=== PATIENT | male | born 1955 | race Caucasian/White ===

== ENCOUNTER 2020-02-20 15:59 | Emergency (ER) | payer BC ==
[2020-02-20 16:11] VITALS: BP 160/84; PULSE 88
--- NOTE | 2020-02-20 16:26 | EDM.PDOC ---
ED HPI GENERAL MEDICAL PROBLEM - General Chief Complaint: Neuro Symptoms/Deficits Stated Complaint: FACIAL NUMBNESS AND DROOPING Time Seen by Provider: 02/20/20 16:05 Source of Information: Reports: Patient, Family (spouse), RN Notes Reviewed - History of Present Illness INITIAL COMMENTS - FREE TEXT/NARRATIVE: 64 yr old male with onset of L facial droop this afternoon over the past several hrs. He also has become aware of L facial paresthesias. No speech difficulty. No arm or leg weakness, numbness or tingling. No hx of TIA, CVA, Htn, CAD or other known medical problems. He does not smoke. Last known completely well about 4 hrs ago. Headache Pain Score (Numeric/FACES): 4 - Related Data Allergies Allergy/AdvReac Type Severity Reaction Status Date / Time codeine Allergy Severe Hives Verified 02/20/20 16:12 Home Meds: Home Meds Ciprofloxacin [Ciprofloxacin HCl] 500 mg PO BID 02/20/20 [History] predniSONE [Prednisone] 50 mg PO DAILY #7 tablet 02/20/20 [Rx] valACYclovir [Valtrex] 1,000 mg PO DAILY PRN 02/20/20 [History] valACYclovir [Valtrex] 1,000 mg PO TID #20 tab 02/20/20 [Rx] Past Medical History HEENT History: Reports: Impaired Vision Other Cardiovascular History: "leaky valve" Genitourinary History: Reports: UTI, Recurrent Other Genitourinary History: 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 Other Musculoskeletal History: arthritis in fingers Endocrine/Metabolic History: Reports: Obesity/BMI 30+ Other Hematologic History: Vitamin D deficiency - Past Surgical History HEENT Surgical History: Reports: Oral Surgery, Tonsillectomy GI Surgical History: Reports: Hernia Repair/Other Neurological Surgical History: Reports: Lumbar Spine, Sacral Spine Musculoskeletal Surgical History: Reports: Arthroscopic Knee, Carpal Tunnel Social & Family History - Tobacco Use Tobacco Use Status *Q: Current Every Day Tobacco User Years of Tobacco use: 16 Packs/Tins Daily: 1 - Caffeine Use Caffeine Use: Reports: Coffee - Recreational Drug Use Recreational Drug Use: No ED ROS GENERAL - Review of Systems Review Of Systems: See Below Constitutional: Denies: Fever, Chills, Diaphoresis HEENT: Reports: Other (L facial droop) Respiratory: Denies: Shortness of Breath Cardiovascular: Denies: Chest Pain GI/Abdominal: Denies: Abdominal Pain, Nausea, Vomiting Musculoskeletal: Denies: Neck Pain, Shoulder Pain, Arm Pain Skin: Reports: No Symptoms Neurological: Reports: Headache (Pt has been getting headaches for the last 2 months), Numbness (L facial), Weakness (L facial droop) ED EXAM, NEURO - Physical Exam Exam: See Below General Appearance: Alert, No Apparent Distress Eye Exam: Bilateral Eye: PERRL Throat/Mouth: Other (L facial droop, mild) Head Exam: No: Facial Swelling Neck: Supple Respiratory/Chest: No Respiratory Distress, Lungs Clear, Normal Breath Sounds Cardiovascular: Regular Rate, Rhythm GI/Abdominal: Non-Tender Neurological: Alert, Oriented x 3, Other (L facial droop, No upper or lower extrem. weakness. No neurologic drift, finger to nose nl) Extremities: Normal Inspection, Normal Range of Motion Skin Exam: Warm, Dry, Normal Color, No Rash #1 Interpretation EKG Date: 02/20/20 Rhythm: NSR [place]: Normal P-Wave: Present QRS: Normal ST-T: Other (t wave inversion lead II) Course - Vital Signs Last Recorded V/S: Last Vital Signs Temp 96.2 F L 02/20/20 16:08 Pulse 88 02/20/20 16:08 Resp 18 02/20/20 16:08 BP 160/84 H 02/20/20 16:08 Pulse Ox 98 02/20/20 16:08 - Re-Assessments/Exams Free Text/Narrative Re-Assessment/Exam: 02/20/20 17:11. CT of head normal as expected. Discharge instr. as documented. Departure - Departure Time of Disposition: 17:05 Disposition: Home, Self-Care 01 Condition: Fair Clinical Impression: Cuellar's palsy - Discharge Information Prescriptions: predniSONE [Prednisone] 50 mg PO DAILY #7 tablet valACYclovir [Valtrex] 1,000 mg PO TID #20 tab Instructions: Cuellar Palsy, Adult Referrals: Elvira Barba PA-C [Primary Care Provider] - Forms: ED Department Discharge, ED Return to Work/School Form Additional Instructions: Prednisone 50 mg PO today and than Q AM for the next 6 days or until gone. Valtrex 1 gram 3 times daily for 1 week or until gone. Prescriptions have been sent electronically to [facility]. Rest. 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 Follow up with you regular medical provider as needed. Return to ED if symptoms worsening in any way as discussed. Sepsis Event Note (ED) - Evaluation Sepsis Screening Result: No Definite Risk - Focused Exam Vital Signs: Vital Signs Temp Pulse Resp BP Pulse Ox 02/20/20 16:08 96.2 F L 88 18 160/84 H 98
--- NOTE | 2020-02-20 16:53 | CT ---
Head CT Technique: Multiple axial sections through the brain were obtained. Intravenous contrast was not utilized. Reconstructed coronal and sagittal images were obtained. Comparison: No previous study. Findings: Ventricles along with basal cisterns and sulci over the convexities appear within normal limits for the patient's age. No abnormal parenchymal densities are seen. No evidence of intracranial hemorrhage. No midline shift or mass-effect is seen. Bone window settings were reviewed. Mastoid sinuses and visualized paranasal sinuses show nothing acute. No acute calvarial finding is appreciated. Impression: 1. Nothing acute is identified on noncontrast head CT exam. Consider MRI for further evaluation if patient's symptoms persist. Diagnostic code #1
== END 2020-02-20 17:14 | disposition home or self-care (01) ==
LOC: JD.ED 15:59
DX: G51.0 Bell's palsy (principal); E66.9 Obesity, unspecified; Z68.37 Body mass index [BMI] 37.0-37.9, adult; Z88.5 Allergy status to narcotic agent; F17.200 Nicotine dependence, unspecified, uncomplicated
CPT/HCPCS: 70450; 70450-26; 93010; 99284; 99284-25